=== PATIENT | male | born 1970 | race African-American/Black ===

== ENCOUNTER 2018-07-27 19:23 | Inpatient (IN) | payer MEDICAID, OTHER ==
[~2018-07-27] VITALS: Ht 182.9 cm; Wt 81.6 kg
[2018-07-27] MEDS ORDERED: ONDANSETRON HCL 4MG/2ML INJ IV STA (20:49)
[2018-07-27] MEDS ORDERED: MORPHINE SULFATE 4 MG/ML CPJ (NOT FOR IM USE) IV STA (20:49)
[2018-07-27] MEDS ORDERED: SODIUM CHLORIDE 0.9% 1,000 ML IV ONE (20:49)
[2018-07-27] MEDS ORDERED: FAMOTIDINE 20MG/2ML VIAL IV STA (20:49)
[2018-07-27 22:15] LABS: BASOPHILS % 0.5 % (0.0-2.0); EOSINOPHILS % 7.6 % (0.0-5.0); HEMATOCRIT. 33.6 % (42.0-52.0); HEMOGLOBIN. 10.8 g/dL (14.0-18.0); LYMPHOCYTES % 30.4 % (20.0-50.0); MEAN CORPUSCULAR HEMOGLOBIN 26.7 pg (28.0-32.0); MEAN CORPUSCULAR VOLUME 83.1 fL (80.0-94.0); MEAN PLATELET VOLUME 7.2 fl (7.4-10.4); MONOCYTES % 10.3 % (2.0-8.0); NEUTROPHILS % 51.2 % (40.0-76.0); PLATELET 307 x1000/uL (130-400); RED BLOOD CELL COUNT 4.04 mill/uL (4.7-6.1); RED CELL DISTRIBUTION WIDTH 21.5 % (11.6-14.6)
[2018-07-27 22:19] LABS: CHLORIDE 111 mEq/L (98-107)
[2018-07-27 22:23] LABS: ETHANOL BLOOD 86 mg/dL
[2018-07-27 23:26] LABS: CLARITY URINE CLEAR (CLEAR); COLOR URINE YELLOW (YELLOW); KETONES URINE NEGATIVE (NEGATIVE); LEUKOCYTE ESTERASE URINE NEGATIVE (NEGATIVE); NITRITE URINE NEGATIVE (NEGATIVE); OCCULT BLOOD URINE NEGATIVE (NEGATIVE); PH URINE 6.5 (4.5-8.0); PROTEIN URINE NEGATIVE (NEGATIVE); SPECIFIC GRAVITY URINE 1.001 (1.005-1.030); UROBILINOGEN URINE 0.2 E.U./dL (0.2-1.0)
[2018-07-27 23:35] LABS: *AMPHETAMINES SCREEN URINE NEGATIVE (NEGATIVE); *BARBITURATES SCREEN URINE NEGATIVE (NEGATIVE); *BENZODIAZEPINES SCREEN URINE PRESUMTIVE POSITIVE (NEGATIVE); *COCAINE SCREEN URINE NEGATIVE (NEGATIVE); METHADONE URINE SCREEN NEGATIVE (NEGATIVE); OPIATES URINE SCREEN PRESUMTIVE POSITIVE (NEGATIVE)
[2018-07-27 23:36] LABS: CANNABINOID URINE SCREEN NEGATIVE (NEGATIVE); PHENCYCLIDINE URINE SCREEN NEGATIVE (NEGATIVE)
[2018-07-28] VITALS (7 sets, daily range): BP systolic 98–123; BP diastolic 42–72
[2018-07-28] MEDS ORDERED: PANTOPRAZOLE SODIUM 40 MG/VIAL IV ONE (02:45)
[2018-07-28] MEDS ORDERED: Amoxicillin PO (06:02)
[2018-07-28] MEDS ORDERED: OMEP40CA34 MT (06:02)
[2018-07-28] MEDS ORDERED: CHLO25CA10 PO (06:02)
[2018-07-28] MEDS ORDERED: IBUP-2029 MT (06:02)
[2018-07-28] MEDS: SODIUM CHLORIDE 0.45% 1,000 ML IV SCH (07:31)
[2018-07-28] MEDS ORDERED: DOCUSATE SODIUM 100MG CAPSULE PO PRN (07:45)
[2018-07-28] MEDS ORDERED: IPRATROPIUM/ALBUTEROL 0.5-3(2.5)MG/3ML NEB INH PRN (07:45)
[2018-07-28] MEDS ORDERED: ACETAMINOPHEN 325MG TABLET PO PRN (07:45)
[2018-07-28] MEDS ORDERED: CLONIDINE 0.1MG TABLET PO PRN (07:45)
[2018-07-28] MEDS ORDERED: ONDANSETRON HCL 4MG/2ML INJ IV PRN (07:45)
[2018-07-28] MEDS ORDERED: MORPHINE SULFATE 2 MG/ML CPJ (NOT FOR IM USE) IV PRN (07:45)
[2018-07-28] MEDS ORDERED: GUAIFENESIN 200MG/10ML SUGAR FREE UDC PO PRN (07:45)
[2018-07-28] MEDS ORDERED: MAGNESIUM/ALUMINUM HYDROXIDE/SIMETHICONE 30ML UDC PO PRN (07:45)
[2018-07-28] MEDS ORDERED: DIPHENHYDRAMINE 50MG/ML VIAL IV PRN (07:45)
[2018-07-28] MEDS ORDERED: LORAZEPAM 2MG/ML CPJ IV PRN ×3 (07:45→11:30)
[2018-07-28] MEDS ORDERED: HYDROCODONE/ACETAMINOPHEN 5/325MG TABLET PO PRN (07:45)
[2018-07-28] MEDS ORDERED: FOLIC ACID 1 MG, THIAMINE HCL 100 MG, MVI, ADULT NO.1 10 ML in DEXTROSE 5% WATER 1,000 ML IV SCH ×4 (13:00)
[2018-07-28] MEDS: MORPHINE SULFATE 4 MG/ML CPJ (NOT FOR IM USE) IV PRN (19:36)
[2018-07-28 20:56] LABS: CREATINE KINASE MB FRACTION 3.1 ng/mL (0.5-3.6)
[2018-07-28 21:13] LABS: CREATINE KINASE 2232 IU/L (39-308)
[2018-07-28 23:47] LABS: HEMATOCRIT 33.1 % (42.0-52.0); HEMOGLOBIN 10.7 g/dL (14.0-18.0)
[2018-07-28] MEDS: AMOXICILLIN 500 MG CAPSULE PO SCH (23:49)
[2018-07-29 00:04] LABS: CREATINE KINASE MB FRACTION 2.6 ng/mL (0.5-3.6)
[2018-07-29 00:15] LABS: CREATINE KINASE 1973 IU/L (39-308)
[2018-07-29] MEDS: SODIUM CHLORIDE 0.45% 1,000 ML IV SCH (01:49)
[2018-07-29] MEDS: MORPHINE SULFATE 4 MG/ML CPJ (NOT FOR IM USE) IV PRN ×2 (01:56→09:11)
[2018-07-29 04:00] VITALS: BP 104/46
[2018-07-29] MEDS ORDERED: AMOXICILLIN 500 MG CAPSULE PO SCH (06:00)
[2018-07-29 06:48] LABS: BASOPHILS % 0.4 % (0.0-2.0); EOSINOPHILS % 10.1 % (0.0-5.0); HEMATOCRIT. 33.5 % (42.0-52.0); HEMOGLOBIN. 10.8 g/dL (14.0-18.0); LYMPHOCYTES % 28.3 % (20.0-50.0); MEAN CORPUSCULAR HEMOGLOBIN 26.6 pg (28.0-32.0); MEAN CORPUSCULAR VOLUME 82.4 fL (80.0-94.0); MEAN PLATELET VOLUME 7.3 fl (7.4-10.4); MONOCYTES % 10.3 % (2.0-8.0); NEUTROPHILS % 50.9 % (40.0-76.0); PLATELET 286 x1000/uL (130-400); RED BLOOD CELL COUNT 4.06 mill/uL (4.7-6.1); RED CELL DISTRIBUTION WIDTH 20.3 % (11.6-14.6)
[2018-07-29 06:57] LABS: CHLORIDE 105 mEq/L (98-107)
[2018-07-29 07:52] VITALS: BP 97/44
[2018-07-29] MEDS: AMOXICILLIN 500 MG CAPSULE PO SCH ×2 (08:20→17:04)
[2018-07-29 08:30] VITALS: BP 106/51
[2018-07-29] MEDS ORDERED: PANTOPRAZOLE SODIUM 40 MG/VIAL IV SCH (09:00)
[2018-07-29 11:56] VITALS: BP 103/48
[2018-07-29 14:04] VITALS: BP 103/48
[2018-07-29 15:55] VITALS: BP 108/62
== END 2018-07-29 21:25 | disposition home or self-care (01) | DRG 254 ==
LOC: ER 21:03 → EDBEDREQ 07-28 02:33 → EDBEDREQTM 07-28 02:33 → EDBEDREQDT 07-28 02:33 → ENRESERV 07-28 04:11 → 6WST 07-28 05:38
PROVIDERS: ADMIT Internal Medicine; ATTEND Internal Medicine
DX: K64.8 Other hemorrhoids (principal); E46 Unspecified protein-calorie malnutrition; D64.9 Anemia, unspecified; F10.10 Alcohol abuse, uncomplicated; I10 Essential (primary) hypertension; Z86.73 Personal history of transient ischemic attack (TIA), and cerebral infarction without residual deficits; Z68.24 Body mass index [BMI] 24.0-24.9, adult; Z79.899 Other long term (current) drug therapy; I25.2 Old myocardial infarction
CPT/HCPCS: 36415; 71045; 80053; 80305; 81003; 82550; 82553; 83690; 84484; 85014; 85018; 85025; 85610; 86850; 86900; 93970; 96361; 96374; 96375; 99285; C9113; G0482; J2060; J2270; J2405; J3411; J3490; J7030; J7070